=== PATIENT | male | born 1950 | race Caucasian/White ===

== ENCOUNTER → 2017-03-30 | Outpatient (CLI) | payer OTHER ==
[~2017-03-30] MED LIST: ALB17R INH; ASPI-1441 PO; ERGO400T9 PO; ESOM20CA31 PO; ESOM40CA42 PO; FLU44R IH; GARL1CAP15 PO; LACT1CAP6 PO; MULT1TAB64 PO; OMEG500C7 PO; VITA-175 PO; VITA100T4 PO
[2017-03-30 12:03] LABS: LDL CHOLESTEROL 91 mg/dl
== END ==
LOC: LAB 09:58
PROVIDERS: ATTEND Internal Medicine
DX: E78.00 Pure hypercholesterolemia, unspecified (principal); I10 Essential (primary) hypertension; R07.2 Precordial pain
CPT/HCPCS: 36415; 82040; 82247; 82310; 82374; 82435; 82465; 82565; 82947; 83718; 84075; 84132; 84155; 84295; 84450; 84460; 84478; 84520

== ENCOUNTER → 2018-05-17 | Outpatient (CLI) | payer OTHER, BC ==
[2018-05-17 11:06] LABS: LDL CHOLESTEROL 78 mg/dl
== END ==
LOC: LAB 09:28
PROVIDERS: ATTEND Internal Medicine
DX: E78.00 Pure hypercholesterolemia, unspecified (principal); I10 Essential (primary) hypertension
CPT/HCPCS: 36415; 82040; 82247; 82310; 82374; 82435; 82465; 82565; 82947; 83718; 84075; 84132; 84155; 84295; 84450; 84460; 84478; 84520